=== PATIENT | female | born 1985 | race Caucasian/White ===

== ENCOUNTER 2018-06-21 12:12 | Emergency (ER) | payer OTHER ==
[2018-06-21 12:39] VITALS: BP 124/73; PULSE 72; TEMP 98.7; BMI 24.1
--- NOTE | 2018-06-21 12:59 | PDOC ---
History of Present Illness - General Chief Complaint: Back Pain Stated Complaint: BACK PAIN Time Seen by Provider: 06/21/18 12:32 History Source: Patient Exam Limitations: No Limitations - History of Present Illness Initial Comments: 06/21/18 12:58 33y F hx of back pain, presents with bck pain. Pt states she was at work on sunday when jher pain started - she does not recall any acute event. The pain is worse with any movement including twisting, walking and feels the best when she is resting flat on her back. Pt went to urgent care on sunday and was given toradol and flexeril by urgent care. she was dc with flexeril but has not been taking it because she doesnt like to be sleepy especialy if she has to go to work. 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 pt denies any fever/chills, n/v, numbnes/stingling/weakness, recent falls/injuuries, diarrhea, dysuria, urinary or bowel incontinence. Past History - Past Medical History Allergies/Adverse Reactions: Allergies Allergy/AdvReac Type Severity Reaction Status Date / Time No Known Allergies Allergy Verified 06/21/18 12:13 Home Medications: Ambulatory Orders Control Pill 1 tab PO ASDIR 06/21/18 Cyclobenzaprine HCl [Flexeril -] 10 mg PO TID PRN 06/21/18 COPD: No Other medical history: denies - Suicide/Smoking/Psychosocial Hx Smoking History: Former smoker Have you smoked in the past 12 months: No Number of Cigarettes Smoked Daily: 0 Information on smoking cessation initiated: No 'Breaking Loose' booklet given: 09/21/16 Hx Alcohol Use: No Drug/Substance Use Hx: No Substance Use Type: None Review of Systems - Review of Systems Able to Perform ROS?: Yes Comments:: 06/21/18 13:39 Constitutional - no reported Fever, Chills, HEENT: no reported vision changes, sore throat Respiratory: no reported cough, sob, hemoptysis Cardiac: no reported chest pain, palpitations, light headedness, leg swelling Abd/GI: no reported abd pain, nausea, vomiting, blood per rectum, melena, diarrhea : no reported dysuria, frequency, discharge Musculskelatal - +back pain, no reported joint swelling skin - no reported bruising, erythema, rash neurological: no reported headache, numbness, focal weakness, tingling, ataxia, hematologic: no reported easy bruising, easy bleeding *Physical Exam - Vital Signs Last Vital Signs Temp Pulse Resp BP Pulse Ox 98.7 F 72 20 124/73 100 06/21/18 12:13 06/21/18 12:13 06/21/18 12:13 06/21/18 12:13 06/21/18 12:13 - Physical Exam Comments: 06/21/18 13:39 GENERAL: The patient is awake, alert, and fully oriented, Nontoxic - in no acute distress. HEAD: Normocephalic, atraumatic. ABDOMEN: Soft, nontender, No guarding, no rebound. . No CVA tenderness BACK: mild tenderness in the L thoracic parapsinal region, no focal midline tenderness, no erythema,induration, fluctuance, ecchmosys or rashes NEUROLOGICAL: No facial assymetry, Normal speech, moving all 4 extrmities spontaneously and symmetrically Medical Decision Making - Medical Decision Making 06/21/18 13:41 suspect back strain will give toradol/valium will reasesss 06/21/18 13:51 pt has a an appt with a back doctor on sunday will have pt fu with them on sunday will give rx for ibuprofen and have her continue taking flexeril return precautions were discussed *DC/Admit/Observation/Transfer Diagnosis at time of Disposition: Back strain Qualifiers: Encounter type: initial encounter Qualified Code(s): S39.012A - Strain of muscle, fascia and tendon of lower back, initial encounter - Discharge Dispostion Disposition: HOME Condition at time of disposition: Improved Decision to Admit order: No - Referrals - Patient Instructions Printed Discharge Instructions: DI for Back Strain or Sprain Additional Instructions: Return to the emergency department immediately with ANY new, persistent or worsening symptoms including numbness, tingling, weakness, fevers or any other concerns. Take ibuprofen (400mg)/tylenol(650mg) every 6 hours for 2 days. Continue taking your flexeril as needed for your back pain. Apply heat to your sore muscles. You MUST call and follow up with your back doctor on sunday as scheduled for further evaluation of your symptoms. Your emergency department visit is not complete without a followup with your doctor for reevaluation.. Results were discussed with you. Please make sure your doctor reviews the results of your emergency evaluation. - Post Discharge Activity Forms/Work/School Notes: Back to Work
[2018-06-21 13:02] LABS: HCG,QUALITATIVE URINE NEGATIVE
[2018-06-21] MEDS ORDERED: KETOROLAC TROMETHAMINE 60 MG/2 ML VIAL IM ONE (13:18)
[2018-06-21] MEDS ORDERED: diazePAM 2 MG TABLET PO ONE (13:19)
[2018-06-21] MEDS ORDERED: KETOROLAC TROMETHAMINE 60 MG/2 ML VIAL ONE (13:22)
[2018-06-21 13:23] LABS: PH,URINE 5.5 (4.5-8); URINE APPEARANCE Clear; URINE BILIRUBIN Negative (NEGATIVE); URINE COLOR Yellow; URINE GLUCOSE (UA) Negative (NEGATIVE); URINE KETONE Negative (NEGATIVE); URINE LEUK ESTERASE Negative (NEGATIVE); URINE NITRITE Negative (NEGATIVE); URINE PROTEIN Trace (NEGATIVE); URINE UROBILINOGEN 0.2 (0.2-1.0)
[2018-06-21] MEDS ORDERED: diazePAM 2 MG TABLET ONE (13:23)
[2018-06-21 13:42] LABS: EPI CELLS MANY /HPF
[2018-06-21 13:43] LABS: URINE BACTERIA MANY /hpf (NEGATIVE); URINE MUCUS MODERATE; URINE SPERM FEW
== END 2018-06-21 14:25 | disposition home or self-care (01) ==
LOC: FER 12:12
PROC: 3E0233Z Introduction of Anti-inflammatory into Muscle, Percutaneous Approach (ICD-10-PCS; principal; 2018-06-21)
DX: S39.012A Strain of muscle, fascia and tendon of lower back, initial encounter (principal); X58.XXXA Exposure to other specified factors, initial encounter; Y93.89 Activity, other specified; Y92.9 Unspecified place or not applicable
CPT/HCPCS: 81003; 81015; 84703; 99282-25

== ENCOUNTER 2018-11-13 18:57 | Emergency (ER) | payer OTHER ==
[2018-11-13 19:22] VITALS: TEMP 98.7; BMI 25.4
--- NOTE | 2018-11-13 20:01 | PDOC ---
History of Present Illness - General History Source: Patient Exam Limitations: No Limitations - History of Present Illness Initial Comments: 11/13/18 21:48 The patient is a 33 year old female with past chronic back pain (L5S1 herniated disc), who presents today complaining of right sided lower back pain. Patient reports the pain radiates to the right hip. The patient denies radiation of pain , numbness and tingling down the lower extremities bilaterally. Patient reports taking one percocet at 6pm with no relief. Patient also notes taking gabapentin yesterday at 11am. Patient notes that she experienced urinary hesitancy today. Patient reports back pain began June 16, 2018. Patient notes being out of work since July due to the pain and has been seeing Dr. Garcia at [facility]. The patient states that she had 2 epidurals with the most recent on 08/16. Denies any recent trauma Allergies:[facility]: Dr. Mckeon 11/13/18 21:59 11/13/18 22:00 <Hannah Dillard - Last Filed: 11/13/18 22:00> <Linda Frank - Last Filed: 11/14/18 00:02> - General Chief Complaint: Back Pain Stated Complaint: BACK PAIN Time Seen by Provider: 11/13/18 19:24 Past History <Hannah Dillard - Last Filed: 11/13/18 22:00> - Past Medical History COPD: No - Suicide/Smoking/Psychosocial Hx Smoking History: Never smoked Have you smoked in the past 12 months: No Number of Cigarettes Smoked Daily: 0 Information on smoking cessation initiated: No 'Breaking Loose' booklet given: 09/21/16 Hx Alcohol Use: No Drug/Substance Use Hx: Yes (MARIJUANA) Substance Use Type: None <Linda Frank - Last Filed: 11/14/18 00:02> - Past Medical History Allergies/Adverse Reactions: Allergies Allergy/AdvReac Type Severity Reaction Status Date / Time No Known Allergies Allergy Verified 11/13/18 18:58 Home Medications: Ambulatory Orders Cyclobenzaprine HCl [Flexeril -] 10 mg PO TID PRN 06/21/18 Gabapentin 300 mg PO HS 11/13/18 Oxycodone HCl/Acetaminophen [Percocet 5-325 mg Tablet] 1 tab PO PRN PRN Review of Systems - Review of Systems Able to Perform ROS?: Yes Comments:: 11/13/18 21:51 GENERAL/CONSTITUTIONAL: No fever or chills. No weakness. HEAD, EYES, EARS, NOSE AND THROAT: No change in vision. No ear pain or discharge. No sore throat. CARDIOVASCULAR: No chest pain or shortness of breath. RESPIRATORY: No cough, wheezing, or hemoptysis. GASTROINTESTINAL: No nausea, vomiting, diarrhea or constipation. GENITOURINARY: + urinary hesitancy. No dysuria, frequency. MUSCULOSKELETAL: No neck pain. + back pain. SKIN: No rash NEUROLOGIC: No headache, vertigo, loss of consciousness, or change in strength/ sensation. ENDOCRINE: No increased thirst. No abnormal weight change. HEMATOLOGIC/LYMPHATIC: No anemia, easy bleeding, or history of blood clots. ALLERGIC/IMMUNOLOGIC: No hives or skin allergy. <Hannah Dillard - Last Filed: 11/13/18 22:00> *Physical Exam - Vital Signs Last Vital Signs Temp Pulse Resp BP Pulse Ox 98.7 F 80 20 126/89 100 11/13/18 18:58 11/13/18 18:58 11/13/18 18:58 11/13/18 18:58 11/13/18 18:58 <Hannah Dillard - Last Filed: 11/13/18 22:00> - Vital Signs Last Vital Signs Temp Pulse Resp BP Pulse Ox 98.7 F 80 20 126/89 100 11/13/18 18:58 11/13/18 18:58 11/13/18 18:58 11/13/18 18:58 11/13/18 18:58 - Physical Exam Comments: Exam performed after administration of pain medications(Toradol 60 mg IM/Valium 5 mg PO) GENERAL: Somnolent but responsive; no acute distress HEAD: Normal with no signs of trauma. EYES: PERRLA, EOMI, sclera anicteric, conjunctiva clear. ENT: Ears normal, nares patent, oropharynx clear without exudates. Dry mucous membranes. NECK: Normal range of motion, supple without lymphadenopathy, JVD, or masses. LUNGS: Breath sounds equal, clear to auscultation bilaterally. No wheezes, and no crackles. HEART:Regular rate and rhythm, normal S1 and S2 without murmur, rub or gallop. ABDOMEN:.normal bowel sounds No guarding,tenderness or rebound.No masses No distention. EXTREMITIES: Normal range of motion, no edema. No clubbing or cyanosis. No erythema, or tenderness. NEUROLOGICAL: Cranial nerves II through XII grossly intact. Normal speech. No focal neurological deficits. Gait not tested secondary to patient's somnolence MUSCULOSKELETAL: Back non-tender to palpation, no CVA tenderness; no straight leg raising pain demonstrable SKIN: Warm, Dry, normal turgor, no rashes or lesions noted. <Linda Frank - Last Filed: 11/14/18 00:02> Moderate Sedation - Procedure Monitoring Vital Signs: Procedure Monitoring Vital Signs Temperature 98.7 F 11/13/18 18:58 Pulse Rate 80 11/13/18 18:58 Respiratory Rate 20 11/13/18 18:58 Blood Pressure 126/89 11/13/18 18:58 O2 Sat by Pulse Oximetry (%) 100 11/13/18 18:58 <Hannah Dillard - Last Filed: 11/13/18 22:00> - Procedure Monitoring Vital Signs: Procedure Monitoring Vital Signs Temperature 98.7 F 11/13/18 18:58 Pulse Rate 80 11/13/18 18:58 Respiratory Rate 20 11/13/18 18:58 Blood Pressure 126/89 11/13/18 18:58 O2 Sat by Pulse Oximetry (%) 100 11/13/18 18:58 <Linda Frank - Last Filed: 11/14/18 00:02> ED Treatment Course - Medications Given in the ED: ED Medications Discontinued Medications Generic Name Dose Route Start Last Admin Trade Name Freq PRN Reason Stop Dose Admin Diazepam 5 mg 11/13/18 21:31 11/13/18 21:41 Valium - PO 11/13/18 21:32 5 mg ONCE ONE Administration Ketorolac Tromethamine 60 mg 11/13/18 21:31 11/13/18 21:40 Toradol Injection - IM 11/13/18 21:32 60 mg ONCE ONE Administration <Hannah Dillard - Last Filed: 11/13/18 22:00> Progress Note - Progress Note Progress Note: Documentation has been prepared under my direction and personally reviewed by me in its entirety. I attest that this documented accurately reflects all work, treatment, procedures and medical decision making performed by me. <Linda Frank - Last Filed: 11/14/18 00:02> Medical Decision Making - Medical Decision Making As noted above, this patient presents with flareup of lower back pain approximately a week after epidural procedure by her pain management physician. She describes approximately 6 months of lower back pain that began as a "back sprain" in May,. Although her analgesic regimen at home is not clear, appears to be gabapentin/Percocet, although she does not seem to be completely compliant with either medication. Exam as noted. Patient had apparent prompt relief of her pain after Toradol IM/Valium 5 PO. Patient was discharged for follow-up with her pain management physician (call tomorrow); no new medications were prescribed. She should return to ER if she has any further severe flareup of her pain <Linda Frank - Last Filed: 11/14/18 00:02> *DC/Admit/Observation/Transfer - Attestations Scribe Attestion: 11/13/18 21:51 Documentation prepared by MINA Henry, acting as medical billing coordinator for Linda Frank MD/DO. 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
[2018-11-13] MEDS ORDERED: KETOROLAC TROMETHAMINE 60 MG/2 ML VIAL IM ONE (21:31)
[2018-11-13] MEDS ORDERED: diazePAM 5 MG TABLET PO ONE (21:31)
[2018-11-13] MEDS ORDERED: diazePAM 5 MG TABLET ONE (21:34)
[2018-11-13] MEDS ORDERED: KETOROLAC TROMETHAMINE 60 MG/2 ML VIAL ONE (21:34)
[2018-11-13 23:29] VITALS: BP 110/70; PULSE 77
== END 2018-11-13 23:37 | disposition home or self-care (01) ==
LOC: FER 18:57
PROC: 3E0233Z Introduction of Anti-inflammatory into Muscle, Percutaneous Approach (ICD-10-PCS; principal; 2018-11-13)
DX: M54.42 Lumbago with sciatica, left side (principal)
CPT/HCPCS: 99282-25

== ENCOUNTER 2021-07-26 12:58 | Emergency (ER) | payer OTHER ==
[2021-07-26 13:34] VITALS: BP 113/84; PULSE 99; TEMP 97; BMI 19.8
[2021-07-26] MEDS ORDERED: CLINDAMYCIN 600MG PREMIX IVPB 600 MG/50 ML BAG IVPB ONE ×2 (14:41→14:47)
[2021-07-26] MEDS ORDERED: KETOROLAC TROMETHAMINE 30 MG/1 ML VIAL IVPUSH ONE (14:57)
[2021-07-26] MEDS ORDERED: KETOROLAC TROMETHAMINE 30 MG/1 ML VIAL ONE (14:58)
== END 2021-07-26 16:13 | disposition home or self-care (01) ==
LOC: JERFT 12:58 → JER 12:58 → JERFT 16:13
PROC: 3E03329 Introduction of Other Anti-infective into Peripheral Vein, Percutaneous Approach (ICD-10-PCS; principal; 2021-07-26)
PROC: 3E0333Z Introduction of Anti-inflammatory into Peripheral Vein, Percutaneous Approach (ICD-10-PCS; 2021-07-26)
DX: L03.116 Cellulitis of left lower limb (principal)
CPT/HCPCS: 73630-TC-LT; 96374; 96375; 99284-25

== ENCOUNTER 2021-08-02 16:49 | Emergency (ER) | payer OTHER ==
[2021-08-02 17:24] VITALS: BP 113/55; PULSE 80; TEMP 98; BMI 26.4
== END 2021-08-02 17:52 | disposition home or self-care (01) ==
LOC: JERFT 16:49
DX: Z48.00 Encounter for change or removal of nonsurgical wound dressing (principal)
CPT/HCPCS: 99281-25

== ENCOUNTER 2021-12-21 11:44 | Emergency (ER) | payer OTHER ==
[2021-12-21 12:12] VITALS: BP 122/82; PULSE 83; TEMP 97.9; BMI 26.4
[2021-12-21] MEDS ORDERED: METHOCARBAMOL 500 MG TABLET PO ONE (12:35)
[2021-12-21] MEDS ORDERED: LIDOCAINE 5% TOPICAL PATCH TP ONE (12:35)
[2021-12-21] MEDS ORDERED: ACETAMINOPHEN 500 MG TABLET (FP) PO ONE (12:36)
[2021-12-21 14:18] LABS: BASO % 0.5 % (0-2.0); EOS % 0.7 % (0-4.5); HEMATOCRIT 43.9 % (32.4-45.2); HEMOGLOBIN 14.2 GM/dL (10.7-15.3); LYMPH % 31.6 % (8-40); MCH 26.8 pg (25.7-33.7); MCHC 32.3 g/dl (32.0-36.0); MEAN CELL VOLUME 82.8 fl (80-96); MEAN PLT VOLUME 8.2 fl (7.5-11.1); MONO % 6.8 % (3.8-10.2); NEUT % 60.4 % (42.8-82.8); PLATELET COUNT 369 10^3/uL (134-434); RDW 13.7 % (11.6-15.6)
[2021-12-21] MEDS ORDERED: ACETAMINOPHEN 325 MG TABLET (FP) ONE (14:43)
[2021-12-21 14:48] LABS: HCG,QUALITATIVE URINE Negative
[2021-12-21 14:49] LABS: EPI CELLS >36 /uL (0-25.1); HYALINE CASTS 2 /uL (0-3.1); URINE APPEARANCE CLEAR; URINE BACTERIA 293 /uL (0-1359); URINE BILIRUBIN NEGATIVE (NEGATIVE); URINE COLOR YELLOW; URINE GLUCOSE (UA) NEGATIVE (NEGATIVE); URINE KETONE 1+ (NEGATIVE); URINE LEUK ESTERASE NEGATIVE (NEGATIVE); URINE NITRITE NEGATIVE (NEGATIVE); URINE PROTEIN NEGATIVE (NEGATIVE); URINE RBC 7 /uL (0-23.9); URINE UROBILINOGEN 0.2 mg/dL (0.2-1.0); URINE WBC 24 /uL (0-25.8)
[2021-12-21] MEDS ORDERED: LACTATED RINGERS SOLUTION 1000 ML INFUS.BAG IV ONE (14:50)
[2021-12-21 14:51] LABS: ALBUMIN 4.7 g/dl (3.4-5.0); BLOOD UREA NITROGEN 8.6 mg/dL (7-18); CALCIUM 10.2 mg/dL (8.5-10.1)
[2021-12-21 14:56] LABS: CREATININE 0.7 mg/dL (0.55-1.3)
[2021-12-21 14:57] LABS: TOT PROT 8.3 g/dl (6.4-8.2)
[2021-12-21 14:59] LABS: BILIRUBIN,TOTAL 0.6 mg/dL (0.2-1)
[2021-12-21] MEDS ORDERED: LIDOCAINE PATCH REMOVAL MC ONE (22:00)
== END 2021-12-21 16:43 | disposition home or self-care (01) ==
LOC: JER 11:44
DX: K62.5 Hemorrhage of anus and rectum (principal); R10.9 Unspecified abdominal pain; M54.42 Lumbago with sciatica, left side
CPT/HCPCS: 36415; 74177-TC; 80053; 81003; 82272; 83690; 84443; 84703; 85025; 87086; 99285-25

== ENCOUNTER 2022-07-17 16:16 | Emergency (ER) | payer OTHER ==
[2022-07-17 16:33] VITALS: BP 114/79; PULSE 84; RESP 17; TEMP 98.2; BMI 23.8
[2022-07-17] MEDS ORDERED: diazePAM 5 MG TABLET PO ONE (18:31)
[2022-07-17] MEDS ORDERED: LIDOCAINE 5% TOPICAL PATCH TP ONE (18:31)
[2022-07-17] MEDS ORDERED: KETOROLAC TROMETHAMINE 30 MG/1 ML VIAL IM ONE (18:31)
[2022-07-17] MEDS ORDERED: diazePAM 5 MG TABLET ONE (18:36)
[2022-07-17] MEDS ORDERED: LIDOCAINE 5% TOPICAL PATCH ONE (18:36)
[2022-07-17] MEDS ORDERED: KETOROLAC TROMETHAMINE 30 MG/1 ML VIAL ONE (18:36)
[2022-07-17] MEDS ORDERED: LIDOCAINE PATCH REMOVAL MC SCH (22:00)
== END 2022-07-17 21:59 | disposition home or self-care (01) ==
LOC: JERFT 16:16
PROC: 3E0233Z Introduction of Anti-inflammatory into Muscle, Percutaneous Approach (ICD-10-PCS; principal; 2022-07-17)
DX: M62.830 Muscle spasm of back (principal); M54.31 Sciatica, right side
CPT/HCPCS: 72131-TC; 84703; 99284-25

== ENCOUNTER 2024-06-05 11:13 | Emergency (ER) | payer OTHER ==
[2024-06-05 11:24] VITALS: BP 108/70; PULSE 75; RESP 16; TEMP 98.3; BMI 19.3
[2024-06-05] MEDS ORDERED: MAGNESIUM SULFATE IN WATER 2 GM/50 ML IVPB IVPB ONE (12:13)
[2024-06-05] MEDS ORDERED: METOCLOPRAMIDE HCL INJECTION 10 MG/2 ML VIAL ONE (12:13)
[2024-06-05] MEDS ORDERED: ACETAMINOPHEN INJECTION 100 ML IVPB ONE (12:13)
[2024-06-05] MEDS: MAGNESIUM SULF 50% (8.12 MEQ/2 ML-1 GM VIAL) IVPB ONE (12:31)
[2024-06-05] MEDS: METOCLOPRAMIDE HCL INJECTION 10 MG/2 ML VIAL IVPUSH ONE (12:31)
[2024-06-05] MEDS: ACETAMINOPHEN 1000 MG/100 ML BAG IVPB ONE (12:31)
[2024-06-05] MEDS: LACTATED RINGERS SOLUTION 1000 ML INFUS.BAG IV ONE (12:31)
== END 2024-06-05 13:45 | disposition home or self-care (01) ==
LOC: JER 11:13
PROC: 3E033NZ Introduction of Analgesics, Hypnotics, Sedatives into Peripheral Vein, Percutaneous Approach (ICD-10-PCS; principal; 2024-06-05)
PROC: 3E033GC Introduction of Other Therapeutic Substance into Peripheral Vein, Percutaneous Approach (ICD-10-PCS; 2024-06-05)
PROC: 3E033GC Introduction of Other Therapeutic Substance into Peripheral Vein, Percutaneous Approach (ICD-10-PCS; 2024-06-05)
DX: G43.909 Migraine, unspecified, not intractable, without status migrainosus (principal); R42 Dizziness and giddiness; H53.149 Visual discomfort, unspecified
CPT/HCPCS: 99284-25; J0131